=== PATIENT | female | born 1940 | race Caucasian/White ===

== ENCOUNTER 2017-05-24 13:34 | Inpatient (IN) | payer MEDICARE ==
[~2017-05-24] VITALS: Ht 165.1 cm; Wt 82.3 kg
[~2017-05-24 13:34] MED LIST: ACET325T14 PO; AMIT25TA PO; CYCL-259 PO; DOCU-180 PO; IBUP-1223 PO; LEVO75TA59 PO; LOSA25TA5 PO; OXYC-302 PO; OXYC1TAB9 PO; PANT40TA5 PO; SENN-31 PO; SENN1TAB7 PO; TIZA2CAP2 PO; VALA500T PO; ZOLP10TA5 PO; [UNRECOGNIZED DRUG - OTHER]
[2017-05-24 14:27] VITALS: BP 151/95
[2017-05-24] MEDS ORDERED: LACTATED RINGERS 1,000 ML IV SCH (14:37)
[2017-05-24] MEDS ORDERED: TRAM50TA2 PO (15:15)
[2017-05-24] MEDS ORDERED: LIDODERM PATCH (15:15)
[2017-05-24] MEDS ORDERED: GABA-826 PO (15:21)
[2017-05-24] MEDS ORDERED: CLON1PAT2 TD (15:21)
[2017-05-24] MEDS ORDERED: IBUP-1223 PO (15:21)
[2017-05-24] MEDS ORDERED: AMIT25TA PO ×2 (15:21)
[2017-05-24] MEDS ORDERED: THROMBIN 5,000 UNIT VIAL TP ONE (15:23)
[2017-05-24] MEDS ORDERED: BUPIVACAINE/PF 0.5% ONE ×2 (15:23→17:29)
[2017-05-24] MEDS ORDERED: EPINEPHRINE 1 MG/ML, 1ML ONE ×2 (15:24→17:29)
[2017-05-24] MEDS ORDERED: BACITRACIN 50,000 UNIT ONE (15:24)
[2017-05-24] MEDS ORDERED: VANCOMYCIN 1,000 MG ONE (15:24)
[2017-05-24] MEDS ORDERED: REMIFENTANIL 2 MG ONE ×2 (16:22→18:46)
[2017-05-24] MEDS ORDERED: FENTANYL PF 100 MCG/2ML ONE ×3 (16:22→20:18)
[2017-05-24] MEDS ORDERED: MIDAZOLAM 1 MG/ML, 2ML ONE (16:22)
[2017-05-24] MEDS ORDERED: CEFAZOLIN 1,000 MG ONE (16:57)
[2017-05-24] MEDS ORDERED: SUCCINYLCHOLINE 20 MG/ML, 10ML ONE (16:57)
[2017-05-24] MEDS ORDERED: PROPOFOL 10 MG/ML, 20ML ONE (16:57)
[2017-05-24] MEDS ORDERED: ONDANSETRON 2MG/ML, 2ML ONE (16:57)
[2017-05-24] MEDS ORDERED: DEXAMETHASONE 4 MG/ML, 1ML ONE (16:57)
[2017-05-24] MEDS ORDERED: HYDROmorphone 1 MG/ML, 1ML ONE (19:24)
[2017-05-24] MEDS ORDERED: MAGNESIUM HYDROXIDE 8%, 30ML UDC PO PRN (20:00)
[2017-05-24] MEDS ORDERED: TIZANIDINE 4MG TABLET PO PRN (20:00)
[2017-05-24] MEDS ORDERED: morphine SULFATE 10 MG/ML, 1ML IVPush PRN (20:00)
[2017-05-24] MEDS ORDERED: DIAZEPAM 5 MG/ML, 2ML IVPush PRN (20:00)
[2017-05-24] MEDS ORDERED: PHARMACY MAY ADJ FOR RENAL FX MC PRN (20:00)
[2017-05-24] MEDS ORDERED: DIPHENHYDRAMINE 50 MG/ML, 1ML IVPush PRN (20:00)
[2017-05-24] MEDS ORDERED: PROMETHAZINE 25 MG/ML, 1ML IM PRN (20:00)
[2017-05-24] MEDS ORDERED: BISACODYL 10 MG SUPP PR PRN (20:00)
[2017-05-24] MEDS ORDERED: HYDROmorphone PCA 30 MG/30 ML IV PRN (20:00)
[2017-05-24] MEDS ORDERED: ONDANSETRON 2MG/ML, 2ML IVPush PRN ×2 (20:00→20:30)
[2017-05-24] MEDS ORDERED: DIAZEPAM 5 MG TABLET PO PRN (20:00)
[2017-05-24] MEDS ORDERED: OXYcodone 5 MG/5 ML ORAL.SOL UDC ONE (20:02)
[2017-05-24] MEDS ORDERED: ACETAMINOPHEN 650 MG/20.3 ML UDC ONE (20:02)
[2017-05-24] MEDS: FENTANYL PF 100 MCG/2ML IV PRN ×4 (20:02→20:44)
[2017-05-24] MEDS ORDERED: HYDROmorphone 2 MG/ML, 1ML ONE (20:17)
[2017-05-24] MEDS: HYDROmorphone 1 MG/ML, 1ML IV PRN ×2 (20:19→20:31)
[2017-05-24] MEDS ORDERED: ACETAMINOPHEN 325 MG TABLET PO PRN (20:30)
[2017-05-24] MEDS ORDERED: LABETALOL 5MG/ML, 20ML IV PRN (20:30)
[2017-05-24] MEDS ORDERED: PROMETHAZINE 25 MG/ML, 1ML IV PRN (20:30)
[2017-05-24] MEDS ORDERED: OXYcodone 5 MG/5 ML ORAL.SOL UDC PO PRN (20:30)
[2017-05-24] MEDS ORDERED: MEPERIDINE/PF 25MG/0.5ML IVPush PRN (20:30)
[2017-05-24] MEDS ORDERED: hydrALAzine 20 MG/ML, 1ML IV PRN (20:30)
[2017-05-24] MEDS ORDERED: HYDROmorphone PCA 30 MG/30 ML ONE (20:33)
[2017-05-24] MEDS: SODIUM CHLORIDE FLUSH 10ML SYR IVF SCH (21:00)
[2017-05-24] MEDS: GABAPENTIN 100 MG CAPSULE PO SCH (22:44)
[2017-05-24] MEDS: AMITRIPTYLINE 25 MG TABLET PO SCH (22:44)
[2017-05-24] MEDS: ZOLPIDEM 10MG TABLET PO SCH (22:45)
[2017-05-24] MEDS: NS + 20MEQ KCL 1,000 ML IV SCH (22:46)
[2017-05-24 23:22] VITALS: BP 141/75
[2017-05-25] MEDS: CEFAZOLIN PMX 1GM/50ML 50 ML IVPB SCH ×2 (01:29→09:21)
[2017-05-25 03:09] VITALS: BP 129/62
[2017-05-25 05:24] LABS: HEMATOCRIT 35.1 % (34.6-47.8); HEMOGLOBIN 11.8 g/dL (11.7-16.4); WHITE BLOOD COUNT 8.6 x10^3/uL (3.4-10)
[2017-05-25 05:37] LABS: BLOOD UREA NITROGEN 16 mg/dL (7-18)
[2017-05-25 06:46] VITALS: BP 127/66
[2017-05-25] MEDS: NS + 20MEQ KCL 1,000 ML IV SCH ×2 (08:00→23:12)
[2017-05-25] MEDS: SODIUM CHLORIDE FLUSH 10ML SYR IVF SCH ×2 (09:00→21:01)
[2017-05-25] MEDS: AMITRIPTYLINE 25 MG TABLET PO SCH ×2 (09:21→21:01)
[2017-05-25] MEDS: GABAPENTIN 100 MG CAPSULE PO SCH ×2 (09:21→21:01)
[2017-05-25] MEDS: SENNA/DOCUSATE TABLET PO SCH (09:21)
[2017-05-25] MEDS: LEVOTHYROXINE 50 MCG TABLET PO SCH (09:21)
[2017-05-25] MEDS: PANTOPROZOLE 40MG TABLET PO SCH (09:21)
[2017-05-25] MEDS: VALACYCLOVIR 500MG TABLET PO SCH (09:22)
[2017-05-25] MEDS ORDERED: HYDROmorphone PCA 30 MG/30 ML IV PRN (13:00)
[2017-05-25 13:11] VITALS: BP 103/64
[2017-05-25 18:40] VITALS: BP 98/60
[2017-05-25] MEDS: ZOLPIDEM 10MG TABLET PO SCH (21:01)
[2017-05-25] MEDS: OXYcodone/APAP 10/325MG TABLET PO PRN (21:01)
[2017-05-26 02:32] VITALS: BP 109/61
[2017-05-26 05:31] LABS: HEMATOCRIT 30.6 % (34.6-47.8); HEMOGLOBIN 10.1 g/dL (11.7-16.4); WHITE BLOOD COUNT 7.9 x10^3/uL (3.4-10)
[2017-05-26] MEDS: LEVOTHYROXINE 50 MCG TABLET PO SCH (05:49)
[2017-05-26 05:51] LABS: BLOOD UREA NITROGEN 13 mg/dL (7-18)
[2017-05-26] MEDS: OXYcodone/APAP 10/325MG TABLET PO PRN ×4 (05:51→19:55)
[2017-05-26 08:03] VITALS: BP 123/58
[2017-05-26] MEDS: NS + 20MEQ KCL 1,000 ML IV SCH ×2 (09:00→20:00)
[2017-05-26] MEDS: SODIUM CHLORIDE FLUSH 10ML SYR IVF SCH ×2 (09:00→21:16)
[2017-05-26] MEDS: GABAPENTIN 100 MG CAPSULE PO SCH ×2 (09:50→21:16)
[2017-05-26] MEDS: AMITRIPTYLINE 25 MG TABLET PO SCH ×2 (09:50→21:17)
[2017-05-26] MEDS: TIZANIDINE 4MG TABLET PO SCH ×2 (09:50→18:28)
[2017-05-26] MEDS: SENNA/DOCUSATE TABLET PO SCH (09:50)
[2017-05-26] MEDS: PANTOPROZOLE 40MG TABLET PO SCH (09:50)
[2017-05-26] MEDS: VALACYCLOVIR 500MG TABLET PO SCH (09:51)
[2017-05-26 20:02] VITALS: BP 105/62
[2017-05-26] MEDS: ZOLPIDEM 10MG TABLET PO SCH (21:16)
[2017-05-27] MEDS: TIZANIDINE 4MG TABLET PO SCH ×3 (01:30→17:58)
[2017-05-27 01:53] VITALS: BP 98/60
[2017-05-27] MEDS: LEVOTHYROXINE 50 MCG TABLET PO SCH (04:56)
[2017-05-27] MEDS: OXYcodone/APAP 10/325MG TABLET PO PRN ×3 (04:56→20:11)
[2017-05-27 05:31] LABS: HEMATOCRIT 28.5 % (34.6-47.8); HEMOGLOBIN 9.5 g/dL (11.7-16.4); WHITE BLOOD COUNT 8.2 x10^3/uL (3.4-10)
[2017-05-27 05:59] LABS: BLOOD UREA NITROGEN 13 mg/dL (7-18)
[2017-05-27] MEDS: NS + 20MEQ KCL 1,000 ML IV SCH (06:00)
[2017-05-27 08:36] VITALS: BP 90/50
[2017-05-27] MEDS: SODIUM CHLORIDE FLUSH 10ML SYR IVF SCH ×2 (09:00→21:39)
[2017-05-27] MEDS: VALACYCLOVIR 500MG TABLET PO SCH (09:44)
[2017-05-27] MEDS: PANTOPROZOLE 40MG TABLET PO SCH (09:45)
[2017-05-27] MEDS: GABAPENTIN 100 MG CAPSULE PO SCH ×2 (09:45→21:39)
[2017-05-27] MEDS: AMITRIPTYLINE 25 MG TABLET PO SCH ×2 (09:45→21:39)
[2017-05-27] MEDS: SENNA/DOCUSATE TABLET PO SCH (09:45)
[2017-05-27 13:53] VITALS: BP 111/54
[2017-05-27 19:01] VITALS: BP 102/38
[2017-05-27] MEDS: ZOLPIDEM 10MG TABLET PO SCH (21:39)
[2017-05-28] MEDS: TIZANIDINE 4MG TABLET PO SCH ×2 (02:06→09:00)
[2017-05-28] MEDS: OXYcodone/APAP 10/325MG TABLET PO PRN ×2 (02:06→06:39)
[2017-05-28 04:16] VITALS: BP 123/65
[2017-05-28 05:22] LABS: HEMATOCRIT 26.6 % (34.6-47.8); HEMOGLOBIN 8.7 g/dL (11.7-16.4); WHITE BLOOD COUNT 6.1 x10^3/uL (3.4-10)
[2017-05-28 05:26] LABS: BLOOD UREA NITROGEN 9 mg/dL (7-18)
[2017-05-28] MEDS: LEVOTHYROXINE 50 MCG TABLET PO SCH (06:40)
[2017-05-28 08:07] VITALS: BP 90/60
[2017-05-28] MEDS: SENNA/DOCUSATE TABLET PO SCH (09:00)
[2017-05-28] MEDS: SODIUM CHLORIDE FLUSH 10ML SYR IVF SCH (09:00)
[2017-05-28] MEDS: PANTOPROZOLE 40MG TABLET PO SCH (09:00)
[2017-05-28] MEDS: GABAPENTIN 100 MG CAPSULE PO SCH (09:00)
[2017-05-28] MEDS: VALACYCLOVIR 500MG TABLET PO SCH (09:00)
[2017-05-28] MEDS: AMITRIPTYLINE 25 MG TABLET PO SCH (09:01)
[2017-05-28] MEDS ORDERED: TIZA4TAB PO (09:43)
[2017-05-28] MEDS ORDERED: SENN1TAB7 PO (09:43)
[2017-05-28] MEDS ORDERED: OXYC1TAB8 PO (09:43)
[2017-05-28] MEDS ORDERED: OXYcodone/APAP 7.5/325MG TABLET PO PRN (10:00)
[2017-05-28 12:43] VITALS: BP 100/57
== END 2017-05-28 17:45 | DRG 457 ==
LOC: ORIP 13:34 → 4NOR 21:23
PROVIDERS: ADMIT Neurological Surgery; ATTEND Neurological Surgery
PROC: 0SB40ZZ Excision of Lumbosacral Disc, Open Approach (ICD-10-PCS; 2017-05-24)
PROC: 0SG00AJ Fusion of Lumbar Vertebral Joint with Interbody Fusion Device, Posterior Approach, Anterior Column, Open Approach (ICD-10-PCS; 2017-05-24)
PROC: 01N80ZZ Release Thoracic Nerve, Open Approach (ICD-10-PCS; 2017-05-24)
PROC: 0SG3071 Fusion of Lumbosacral Joint with Autologous Tissue Substitute, Posterior Approach, Posterior Column, Open Approach (ICD-10-PCS; principal; 2017-05-24 16:45)
DX: M41.27 Other idiopathic scoliosis, lumbosacral region (principal); D62 Acute posthemorrhagic anemia; I10 Essential (primary) hypertension; M48.07 Spinal stenosis, lumbosacral region; M54.16 Radiculopathy, lumbar region; M43.16 Spondylolisthesis, lumbar region; Z88.6 Allergy status to analgesic agent; M43.17 Spondylolisthesis, lumbosacral region
CPT/HCPCS: 36415; 71010; 72100; 80048; 85025; 86850; 86900; 95938; 95941; C1713; C1776; J0171; J0690; J1100; J1170; J2250; J2405; J2704; J3010; J3370; J3480; J3490; C1762; J0330; J7120